=== PATIENT | female | born 1970 | race Caucasian/White ===

== ENCOUNTER → 2019-02-21 11:55 | Outpatient (CLI) | payer OTHER, MEDICAID, SELFPAY ==
--- NOTE | 2019-02-21 | DI.US.S_ITS ---
PROCEDURE: US PELVIC COMPLETE INDICATIONS: PELVIC BLOATING TECHNIQUE: Real-time scanning was performed of the pelvic organs, with image documentation. Additional endovaginal scanning was necessary due to incomplete visualization of the adnexal and endometrial structures by transabdominal scanning. COMPARISON: [facility], US, PELVIC COMPLETE, 08/30/2015, 16:40. [facility], US, PELVIS SONO TRANSVAGINAL (PNL), 02/11/2015, 15:09. FINDINGS: Transabdominal scanning: Limited scanning through the kidneys shows no hydronephrosis. No pathologic free abdominal or pelvic fluid. Endovaginal scanning: Uterus: The uterus is retroflexed and measures 9.3 x 4.9 x 6.0 cm. Moderate heterogeneity of the myometrium is identified without discrete myometrial abnormality or lesion evident. Endometrial echo stripe measures 4 mm in maximal combined thickness. Ovaries: The right ovary measures 3.1 x 1.4 x 1.5 cm and contains a dominant follicle measuring up to 1.5 cm. The right ovary is otherwise within normal limits. The left ovary has been surgically removed. IMPRESSION: Unremarkable uterus and right ovary. Dictated by: Osman Oliver M.D. on 02/21/2019 at 14:56 Approved by: Osman Oliver M.D. on 02/21/2019 at 14:57
--- NOTE | 2019-02-21 | DI.MG.S_ITS ---
BILATERAL DIGITAL SCREENING MAMMOGRAM 3D/2D WITH CAD: 02/21/2019 CLINICAL: Routine screening. Family history of breast cancer. Comparison is made to exam dated: 02/29/2012 mammogram - [facility]. There are scattered fibroglandular elements in both breasts. Current study was also evaluated with a Computer Aided Detection (CAD) system. No significant masses, calcifications, or other findings are seen in either breast. There has been no significant interval change. IMPRESSION: NEGATIVE There is no mammographic evidence of malignancy. A 1 year screening mammogram is recommended. This exam was interpreted at Station ID: [id number]. NOTE: For mammograms, a report in lay terms will be sent to the patient. Approximately 15% of breast malignancies will not be visualized mammographically. In the management of a palpable breast mass, a negative mammogram must not discourage biopsy of a clinically suspicious lesion. Electronically Signed By: Iveth clemens/[place]:02/22/2019 09:57:09 letter sent: Normal Exam ACR BI-RADS Category 1: Negative [id number]
== END ==
PROVIDERS: PCP Registered Nurse; Visit Provider Nurse Practitioner Obstetrics & Gynecology
DX: Z12.31 Encounter for screening mammogram for malignant neoplasm of breast (principal); Z80.3 Family history of malignant neoplasm of breast; R14.0 Abdominal distension (gaseous)
CPT/HCPCS: 76830; 76856; 77063; 77067

== ENCOUNTER → 2020-11-29 13:06 | Outpatient (CLI) | payer OTHER, MEDICAID, SELFPAY ==
--- NOTE | 2020-11-29 13:10 | DI.US.S_ITS ---
PROCEDURE: US PELVIC COMPLETE INDICATIONS: EVALUATE ENDOCERVICAL MASS/POLYP AND ROOTS TECHNIQUE: Real-time scanning was performed of the pelvic organs, with image documentation. Additional endovaginal scanning was necessary due to incomplete visualization of the adnexal and endometrial structures by transabdominal scanning. COMPARISON: [facility], , US PELVIC COMPLETE, 02/21/2019, 13:07. FINDINGS: Uterus: Uterus is normal in size at 8.2 x 5.2 x 4.2 cm. Multiple nabothian cysts. No endocervical mass identified. The endometrium measures 2.9 mm in combined thickness. Ovaries: Right ovary measures 2.2 x 1.8 x 0.7 cm. Left ovary has been removed surgically. Other: No pathologic free abdominal or pelvic fluid. There is a prominent vein adjacent to the right adnexa. IMPRESSION: 1. No endocervical mass identified. Otherwise unremarkable appearance of uterus. Dictated by: Kyler Noble M.D. on 11/30/2020 at 9:23 Approved by: Kyler Noble M.D. on 11/30/2020 at 9:26
== END ==
PROVIDERS: PCP Registered Nurse; Referring Provider Obstetrics & Gynecology; Visit Provider Obstetrics & Gynecology
DX: N93.9 Abnormal uterine and vaginal bleeding, unspecified (principal); N84.1 Polyp of cervix uteri
CPT/HCPCS: 76830; 76856

== ENCOUNTER → 2021-11-10 11:08 | Outpatient (CLI) | payer OTHER, MEDICAID, SELFPAY ==
[2021-11-10 13:34] LABS: COVID19 -Nasal RAPID Negative (Negative)
== END ==
PROVIDERS: PCP Registered Nurse; Referring Provider Obstetrics & Gynecology; Visit Provider Obstetrics & Gynecology
DX: Z01.812 Encounter for preprocedural laboratory examination (principal); Z20.822 Contact with and (suspected) exposure to COVID-19
CPT/HCPCS: 87635; C9803

== ENCOUNTER 2021-11-11 08:18 | Day surgery (SDC) | payer OTHER, MEDICAID, SELFPAY ==
[2021-11-06 08:48] VITALS: BMI 25.9
[2021-11-11] VITALS (7 sets, daily range): BP systolic 107–121; BP diastolic 68–82; PULSE 67–78; RESP 16–18; TEMP 30–36.8; O2SAT 97–100; BMI 25.9
--- NOTE | 2021-11-11 | PATH_ITS ---
[facility] Accession Number: [id number] . 01 Material submitted: . endometrium - ENDOMETRIAL CURETTINGS . 02 Diagnosis: A. Endometrium, Curettage: Scant specimen consisting predominantly of blood and few superficial strips and fragments of non-proliferative endometrial glandular epithelium with features of atrophy. Focal subtle changes suggestive of breakdown. Negative for significant cytologic atypia and malignancy. [facility] 11/19/2021 0331 Local . 02 Electronically signed: . Kathrine Davis MD, Pathologist NPI- [id number] . 01 Gross description: . Received in formalin, labeled with the patient's name and endometrial curettings is a Telfa pad with a 1.0 x 1.0 x 0.3 cm aggregate of multiple fragments of red-brown soft tissue and mucus entirely submitted. . Summary of Sections: A1. Multiple pieces. (IL:[id number]) /MRV 11/12/2021 1313 Local . 02 Pathologist provided ICD-10: N94.89 . 02 CPT . 274537 Performed at: 01 [facility] [address], [place], [place] [id number] MD Bj Robertson MD Phone: [phone] Performed at: 02 [facility] [address] [place], [place] [id number] MD Enid Elena MD Phone: [phone]
--- NOTE | 2021-11-11 08:07 | SUR.OPER ---
Lithotomy on padded OR bed, head on pillow, arms secured on padded arm boards at <90 degrees abduction. Legs secured in padded yellow fins stirrups.
--- NOTE | 2021-11-11 08:56 | PM.HP.1 ---
History of Present Illness History of Present Illness Date Patient Seen: 11/11/21 Time Patient Seen: 08:56 Chief complaint: SDC Narrative: Patient is a 51 year old who presents for a D&C hysteroscopy due to endometrial hyperplasia Patient History Surgical History (Updated 11/06/21 @ 08:53 by Annette Mix RN) History of liver biopsy (10/25/15) History of third molar tooth extraction Status post laparoscopy (10/25/15) Family & Social History Social History: household members friend(s) Tobacco & Substance use: Smoking Status Never smoker alcohol intake frequency holiday/special occasion Substance Use Type does not use Meds Home Medications and Allergies Home Medications Medication Instructions Recorded Confirmed Type Bio 1 dose TOPICAL DAILY 12/18/20 09/29/21 History Identical-prosterone,estrogen,testosterone Compounded hypoallergenic thyroid PO 12/18/20 09/29/21 History DHEA 1 tab PO DAILY 12/18/20 09/29/21 History vitamin B complex (B 1 tab PO DAILY 09/29/21 09/29/21 History Complex-Vitamin B12) Levothyronine 25 mcg PO DAILY 11/11/21 History levothyroxine 25 mcg capsule 25 mcg PO DAILY 11/11/21 11/11/21 History Allergies Allergy/AdvReac Type Severity Reaction Status Date / Time Penicillins Allergy Severe THROAT Verified 11/11/21 08:34 SWELLING/DIZZINESS gluten AdvReac Intermediate Verified 09/29/21 15:03 Exam Vital Signs (past 8 hours): - 11/11/21 08:44 Temperature 98.2 F Pulse Rate 75 Respiratory Rate 18 Blood Pressure 121/82 Pulse Oximetry 100 Oxygen Delivery Method Room Air Narrative Exam Narrative: HEENT: No thyromegaly, no anterior cervical or supraclavicular lymphadenopathy. Lungs:Clear to auscultation bilaterally, no wheezes. Cardiovascular: Regular rate and rhythm, no murmurs, rubs, or gallop. Abdomen:Well-healed laparoscopy scars. No hepatosplenomegaly. No masses palpable External genitalia:Karen Vagina:Karen Cervix:Karen Bimanual exam: 8 Week size anteverted uterus. Mobile. No adnexal masses or tenderness Extremities: No edema Assessment & Plan Assessment & Plan narrative: Assessment: 51-year-old 3 para 3 with endometrial hyperplasia Plan: D&C hysteroscopy with NovaSure endometrial ablation The risks, benefits, and alternatives to the procedure were explained to the patient. The risks including bleeding, infection, and uterine perforation. She understands these risks and agrees to proceed. A full par Q was held and consent form was signed. COVID-19 COVID-19 status: Negative Result date/Date tested (Pos, Neg/Pending): 11/10/21 Time Spent With Patient Time with patient: less than 30 minutes Critical Care time: I spent a total of [] minutes of critical care time on this patient's care today; this time is exclusive of procedural time.
--- NOTE | 2021-11-11 09:01 | PM.PREOP ---
Pre-operative Note COVID-19 COVID-19 status: Negative Result date/Date tested (Pos, Neg/Pending): 11/11/21 Criteria for continued procedure: Delay expected to result in less-positive ultimate med/surg outcome and Non-surgical alternatives not available or appropriate per current SOC Interval Note History & Physical reviewed/Exam performed by Physician: Yes Changes to H&P: No H&P completed within 30 days and has changed as indicated here:: 11/11/21
[2021-11-11] MEDS: LACTATED RINGERS 1,000 ML 42 ML IV (09:07)
--- NOTE | 2021-11-11 10:17 | PM.GYNOP.1 ---
Operative Date/Time/Diagnoses Date of procedure: 11/11/21 Time of procedure: 10:17 Pre-op diagnosis: Endometrial hyperplasia Post-op diagnosis: same Procedure & Clinicians Procedure: Procedures Operation Date: 11/11/21 09:45 Actual Procedure Side Surgeon p Hysteroscopy, D&C, NOVASURE Ablation Abby Ramos MD Indications: Endometrial hyperplasia Surgeon: Abby Ramos Anesthesia Type: General (LMA) Operative Notes Findings: 6 week size anteverted uterus Both Fallopian tube ostia observed Thickened lining of the uterus Closure Type: not applicable Specimen(s): endometrial curettings Estimated blood loss (mL): 10 Blood products transfused: none Procedure in detail: After informed consent was obtained, the patient was taken to the operating room where she was placed in the dorsal supine position. After adequate LMA general anesthesia was achieved, she was placed in the dorsal lithotomy position, and prepped and draped in the usual sterile fashion. A time-out was performed. A bivalve speculum was placed into the vagina and the anterior lip of the cervix was grasped with a single-tooth tenaculum. Cervical os was sequentially dilated to the # 8 Hegar dilator. The hysteroscope passed easily into the endometrial cavity. Both fallopian tube ostia were observed. There was thickened endometrial lining throughout. The hysteroscope was removed. Sharp curettage was performed yielding a moderate amount of endometrial curettings. The Suresound was placed into the uterine cavity the cervical bulb was deployed and the sound pulled back against the internal cervical os. The uterine sound was then advanced to the fundus of the uterus and measured 4.0 cm. The cervical bulb was closed and the Suresound was removed from the endometrial cavity. The NovaSure catheter was set at 4 cm in length. This passed easily into the endometrial cavity and was deployed. The width was 2.5 cm. The cervical cap was placed. The cavity assessment was performed and passed. The cycle was initiated and lasted 1 minute and 7 seconds. The power was at 55 w. At the completion of the cycle the NovaSure catheter was closed. The cervix was uncapped. The NovaSure catheter was removed from the uterus. The single-tooth tenaculum was removed from the anterior lip of cervix. The bivalve speculum was removed from the vagina. Sponge, lap, and instrument counts were correct x2. Patient tolerated the procedure well, and was taken to PACU in stable condition. Complications: none Post-operative Condition: stable Disposition: PACU Plan for aftercare: Home after recovery
[2021-11-11] MEDS: fentaNYL 100 MCG/2 ML INJ IV ×2 (10:18→10:25)
== END 2021-11-11 11:18 | disposition home or self-care (01) ==
PROVIDERS: PCP Registered Nurse; Referring Provider Obstetrics & Gynecology; Visit Provider Obstetrics & Gynecology
PROC: 0U5B8ZZ Destruction of Endometrium, Via Natural or Artificial Opening Endoscopic (ICD-10-PCS; CPT 58563; principal; 2021-11-11 09:45)
DX: N85.00 Endometrial hyperplasia, unspecified (principal); E03.9 Hypothyroidism, unspecified; Z86.16 Personal history of COVID-19
CPT/HCPCS: 58563; J1100; J1885; J2250; J2405; J2704; J3010

== ENCOUNTER → 2022-01-27 09:07 | Outpatient (CLI) | payer OTHER, MEDICAID, SELFPAY ==
[2022-01-28 04:36] LABS: Candida species Negative (Negative); Gardnerella vaginalis Negative (Negative); Trichomoas vaginalis Negative (Negative)
== END ==
PROVIDERS: PCP Registered Nurse; Visit Provider Obstetrics & Gynecology
DX: R10.9 Unspecified abdominal pain (principal); N76.0 Acute vaginitis
CPT/HCPCS: 81002; 87070; 87205; 87480; 87510; 87660

== ENCOUNTER → 2022-04-01 17:58 | Outpatient (CLI) | payer OTHER, MEDICAID, SELFPAY ==
[2022-04-03 13:39] LABS: Candida species Negative (Negative); Gardnerella vaginalis Negative (Negative); Trichomoas vaginalis Negative (Negative)
== END ==
PROVIDERS: PCP Registered Nurse; Visit Provider Obstetrics & Gynecology
DX: N89.8 Other specified noninflammatory disorders of vagina (principal); R10.2 Pelvic and perineal pain
CPT/HCPCS: 87210; 87480; 87510; 87660